=== PATIENT | female | born 1960 | race African-American/Black ===

== ENCOUNTER → 2021-01-16 | Outpatient (CLI) | payer OTHER ==
[~2021-01-16] MED LIST: MAGN1TAB PO; PANT20TA58 PO; POTA20TA12 PO
--- NOTE | 2021-01-16 10:17 | RAD ---
US HEAD/NECK SOFT TISSUE History:Reason: RT PAROTID GLAND AND NECK FOR PAIN AND SWELLING / Spl. Instructions: / History: Comparison: None Technique: Sonographic examination of the right parotid gland in neck soft tissues Findings: Normal appearance of the right parotid gland. No fluid collection or mass within the neck soft tissue s. Right level 2 cervical lymph node measures 2.3 x 1.2 x 0.5 cm with normal fatty hilum. No patholog ically enlarged lymph nodes. Impression: 1. Unremarkable ultrasound appearance of the right parotid gland. Electronically signed by: Cristofer Valdez DO (01/16/2021 10:15 AM) [id number]
== END ==
LOC: US 09:28
PROVIDERS: ATTEND Family Medicine
DX: K11.8 Other diseases of salivary glands (principal)
CPT/HCPCS: 76536